=== PATIENT | female | born 1945 | race Caucasian/White ===

== ENCOUNTER 2019-10-24 09:55 | Outpatient (RCR) | payer MEDICARE, SELFPAY ==
--- NOTE | 2019-10-24 10:49 | PTOPEVAL ---
Thank you for referring this patient to [facility]. Please review, sign, date and return this plan of care JACKIE. I agree with and certify that the following plan of care is medically necessary. Referring Physician Date Admitting Provider: Attending Provider: Gorge Damon, Referring Provider: *PT Outpatient Evaluation Start: 10/24/19 10:17 Freq: Status: Active Protocol: Document 10/24/19 10:17 REJI (Rec: 10/24/19 10:49 REJI [id number]) Therapy Assessment Status Assessment Status Assessment Status Evaluation Evaluation Information Problem Diagnosis left shoulder pain Onset 04/11/19 Subjective Information Pt. recalls no particular Query Text:As Reported By Patient/ injury that increased her Family shoulder pain. She states that woke one day in the summer with shoulder pain. She reports that most pain in the shoulder is noted with reaching behind her back. She enjoys playing golf and pain has effected that. She reports most pain with doffing clothing or putting on her under garment. She reports that washing her back is difficult as well. Diagnostic Tests MRI For This Problem Yes: suprispinatus tear, bursitis Pain Assessment Timing of Pain Assessment Timing of Pain Assessment Pre-Treatment Pain Scale Pain Scale Used Numeric (1 - 10) Self Report Pain Assessment Left Shoulder(s) Reported Pain Level 2 Pain Description Sharp Current Pain Intensity 2 Lowest Pain Intensity 2 Greatest Pain Intensity 10 Pain Aggravating Factors Exercise/Activity Other Pain Aggravating Factors Pain is worst at night and wakes her from sleep Other Alleviating Interventions use of biofreeze helps to ease her pain Pain Score Pain Score 2: Self Report Upper Extremity Range of Motion Scapular/ Shoulder Range of Motion Right Shoulder Flexion - Active 158 Shoulder Medial Rotation - Active 80 Shoulder Lateral Rotation - Active 95 Left Shoulder Flexion - Active 148 Shoulder Medial Rotation - Active 60 Shoulder Medial Rotation - Active Pt. reaches the mid thoracic Query Text:Reach Behind the Back region with both the right and left. u.e with increased pain
--- NOTE | 2019-11-03 14:27 | PCPTNOTE ---
patient called and cancelled appt due to weather. BRITTANEY
== END 2019-12-07 08:26 | disposition home or self-care (01) ==
LOC: CHSPT 09:55
PROVIDERS: PCP Family Medicine; Visit Provider Family Medicine
DX: M25.512 Pain in left shoulder (principal)
CPT/HCPCS: 97014; 97110; 97161; G0283

== ENCOUNTER 2020-04-30 09:51 | Outpatient (CLI) | payer MEDICARE, SELFPAY ==
--- NOTE | ~2020-04-30 | MM_ITS ---
EXAMINATION: MM diagnostic lizabeth BI w yemi HISTORY: Recent benign right breast biopsy TECHNIQUE: Additional 3-D tomosynthesis images of the breasts were performed and synthetic 2-D images were generated. CAD analysis was submitted and interpreted. COMPARISON: Comparison to multiple prior studies sequentially, with oldest reviewed study dated 07/12. BREAST PARENCHYMAL COMPOSITION: BREAST PARENCHYMAL COMPOSITION: There are scattered areas of fibroglandular density. FINDINGS: There are benign breast calcifications. There are no suspicious masses, calcifications or a rchitectural distortion in either breast to suggest IMPRESSION: 1. No mammographic evidence for malignancy in either breast. 2. Routine yearly screening mammogram and regular clinical breast examination are recommended. BI-RADS Category 2: Benign finding(s). Reviewed, dictated and finalized at location A. IMPRESSION: 1. No mammographic evidence for malignancy in either breast. 2. Routine yearly screening mammogram and regular clinical breast examination a re recommended. BI-RADS Category 2: Benign finding(s).
== END 2020-04-30 09:52 | disposition home or self-care (01) ==
PROVIDERS: PCP Family Medicine; Visit Provider Family Medicine
DX: R92.8 Other abnormal and inconclusive findings on diagnostic imaging of breast (principal)
CPT/HCPCS: 77062; 77066; G0279

== ENCOUNTER 2021-06-11 14:13 | Outpatient (CLI) | payer MEDICARE, SELFPAY ==
--- NOTE | ~2021-06-11 | MM_ITS ---
EXAMINATION: MM screening lizabeth BI w yemi HISTORY: Screening TECHNIQUE: Craniocaudal and mediolateral oblique 3-D tomosynthesis images were obtained and synthetic 2-D images were generated. CAD analysis was submitted and interpreted. COMPARISON: No prior mammogram is available for comparison at this institution. BREAST PARENCHYMAL COMPOSITION: There are scattered areas of fibroglandular density. FINDINGS: No significant change to benign-appearing right breast calcifications. There is no evidence of suspicious mass, calcification, or architectural distortion to suggest malignancy in either breas t. There has been no suspicious interval change. IMPRESSION: 1. No mammographic evidence of malignancy. 2. Recommend routine screening mammography in one year. BI-RADS Category 2: Benign finding(s). Reviewed, dictated and finalized at location A.
== END 2021-06-11 14:14 | disposition home or self-care (01) ==
PROVIDERS: PCP Family Medicine; Visit Provider Family Medicine
DX: Z12.31 Encounter for screening mammogram for malignant neoplasm of breast (principal)
CPT/HCPCS: 77063; 77067

== ENCOUNTER 2021-08-05 08:07 | Outpatient (RCR) | payer MEDICARE, SELFPAY ==
--- NOTE | 2021-08-05 08:00 | PTOPEVAL ---
Thank you for referring Clarisa Tomas to [facility].? The patient is scheduled to be seen for therapy? ____x/week for ___ weeks. Please review, sign, date and return this plan of care JACKIE. I agree with and certify that the following plan of care is medically necessary. Referring Physician Date Admitting Provider: Attending Provider: Gorge Damon, MD Referring Provider: *PT Outpatient Evaluation Start: 08/05/21 07:02 Freq: Status: Active Protocol: Document 08/05/21 07:03 ACR (Rec: 08/05/21 08:00 ACR [id number]) Therapy Assessment Status Assessment Status Assessment Status Evaluation Evaluation Information Problem Diagnosis pain in R shoulder Onset 08/02/21 Subjective Information Patient states that her Query Text:As Reported By Patient/ shoulder has been bothering Family her quite a bit. She states that any overhead activities such as putting dishes away and cleaning windows. Patient states that sleeping is really bad. Patient states that she has pain all the time, but she is still able to perform her ADL's. She states she has tried all conservative pain remedies, but nothing is working. Patient reports when the pain gets bad it goes into her neck and down her arm but it is not numbness and tingling, it is a sharp pain. Patient states that her goal is to be able to sleep through the night and reach overhead without pain. Prior Level of Function Activity Level (Last 3 Months) Occupation retired Hand Dominance Right Activity of Daily Living Ability Independent Indoor/Home Mobility Independent Community Mobility Independent Stairs Ability Independent Functional Cognition (Planning, Shopping Independent , Taking Medications) Cooking Yes Cleaning Yes Laundry Yes Shopping Yes Driving Yes Pain Assessment Timing of Pain Assessment Timing of Pain Assessment Assessment Pain Scale Pain Scale Used Numeric (1 - 10) Self Report Pain Assessment Right Shoulder(s) Reported Pain Level 5 Pain Tesfaye
--- NOTE | 2021-08-26 12:36 | PTOPEVAL ---
Thank you for referring Clarisa Tomas to [facility].? The patient is scheduled to be seen for therapy? ____x/week for ___ weeks. Please review, sign, date and return this plan of care JACKIE. I agree with and certify that the following plan of care is medically necessary. Referring Physician Date Admitting Provider: Attending Provider: Gorge Damon, MD Referring Provider: *PT Outpatient Evaluation Start: 08/05/21 07:02 Freq: Status: Active Protocol: Document 08/23/21 06:58 ACR (Rec: 08/23/21 08:03 ACR [id number]) Therapy Assessment Status Assessment Status Assessment Status Progress Evaluation Information Problem Diagnosis pain in R shoulder Onset 08/02/21 Subjective Information Patient reports that since Query Text:As Reported By Patient/ beginning therapy she believes Family she shoulder is a little better, but she still has bad nights. She states that she played 9 holes of golf and had no difficulty, but as soon as she relaxes at night her shoulder really starts to bother her. She states that she wants to think about some pain medication at night to help her sleep. Pain Assessment Timing of Pain Assessment Timing of Pain Assessment Assessment Pain Scale Pain Scale Used Numeric (1 - 10) Self Report Pain Assessment Right Shoulder(s) Reported Pain Level 5 Greatest Pain Intensity 8 Pain Score Pain Score 5: Self Report Interventions Used Interventions Used By Clinicians Activity or ADL's,Electrical Stimulation,Exercise,Heat Upper Extremity Range of Motion Scapular/ Shoulder Range of Motion Right Shoulder Flexion - Active 173 Shoulder Abduction - Active 170 Shoulder Medial Rotation - Passive 81 Shoulder Medial Rotation - Active T7 Query Text:Reach Behind the Back Shoulder Lateral Rotation - Active 83 Shoulder Lateral Rotation - Active T3 Query Text:Reach Behind the Head Upper Extremity Muscle Strength Testing Scapular/Shoulder Right Shoulder Flexion Strength 4 Good Shoulder Abduction Strength 5 Normal Shoulder Medial Rotation Strength 5 Normal Shoulder Lateral Rotation Strength 4 Good General Exercise General Exercises Exercise Description - pulleys x 5 min Query Text:Record Sets, Reps, - PROM shoulder mobility x 10 Resistance, and Position min - B shoulder extension with scapular depression blue
--- NOTE | 2021-08-30 08:24 | PTOPEVAL ---
Thank you for referring Clarisa Tomas to [facility].? The patient is scheduled to be seen for therapy? ____x/week for ___ weeks. Please review, sign, date and return this plan of care JACKIE. I agree with and certify that the following plan of care is medically necessary. Referring Physician Date Admitting Provider: Attending Provider: Gorge Damon, Referring Provider: *PT Outpatient Evaluation Start: 08/05/21 07:02 Freq: Status: Active Protocol: Document 08/30/21 07:23 [facility] (Rec: 08/30/21 08:24 [facility] [email or web address]) Therapy Assessment Status Assessment Status Assessment Status Discharge Evaluation Information Problem Diagnosis pain in R shoulder Onset 08/02/21 Additional Evaluation Detail quick dash = 4.5% functionally declined Subjective Information patient reports she feels Query Text:As Reported By Patient/ Great this date. she reports Family this has been her best week yet since beginning therapy. she reports she is ready to DC therapy today. Pain Assessment Timing of Pain Assessment Timing of Pain Assessment Assessment Pain Scale Pain Scale Used Numeric (1 - 10) Self Report Pain Assessment Right Shoulder(s) Reported Pain Level 2 Greatest Pain Intensity 6 Pain Score Pain Score 2: Self Report Interventions Used Interventions Used By Clinicians Activity or ADL's,Electrical Stimulation,Exercise,Heat Upper Extremity Range of Motion Scapular/ Shoulder Range of Motion Right Shoulder Flexion - Active 170 Shoulder Medial Rotation - Passive 81 Shoulder Medial Rotation - Active mid thoracic spine Query Text:Reach Behind the Back Shoulder Lateral Rotation - Active 83 Shoulder Lateral Rotation - Active upper thoracic spine Query Text:Reach Behind the Head Upper Extremity Muscle Strength Testing Scapular/Shoulder Right Shoulder Flexion Strength 4+ Good + Shoulder Abduction Strength 5 Normal Shoulder Medial Rotation Strength 5 Normal Shoulder Lateral Rotation Strength 4+ Good + Elbow/Forearm Right Elbow Flexion Strength 5 Normal Elbow Extension Strength 5 Normal General Exercise General Exercises Exercise Description -PROM shoulder mobility x 8 Query Text:Record Sets, Reps, min Resistance, and Position -bilateral shoulder retraction light blue band x 30 reps -bilateral shoulder extension with scapular depression x 30 light blue -bilateral shoulder ER x30
== END 2021-08-30 09:07 | disposition home or self-care (01) ==
LOC: CHSPT 08:07
PROVIDERS: PCP Family Medicine; Visit Provider Family Medicine
DX: M75.41 Impingement syndrome of right shoulder (principal)
CPT/HCPCS: 97014; 97110; 97140; 97161; G0283

== ENCOUNTER 2022-06-17 07:17 | Outpatient (CLI) | payer MEDICARE, SELFPAY ==
--- NOTE | ~2022-06-17 | MM_ITS ---
EXAMINATION: MM screening lizabeth BI w yemi HISTORY: Screening mammogram TECHNIQUE: Craniocaudal and mediolateral oblique 3-D tomosynthesis images were obtained and synthetic 2-D images were generated. CAD analysis was submitted and interpreted. COMPARISON: Diagnostic bilateral mammogram 10/21/2019 bilateral diagnostic mammography 10/21/2019 limited right breast ultrasound 10/17/2019, 10/07/2017 bilateral screening mammogram examinations 06/11/2021 bilateral screening mammogr am 04/30/2020 BREAST PARENCHYMAL COMPOSITION: There are scattered areas of fibroglandular density. FINDINGS: There are 3 biopsy markers on the right; history of prior benign breast biopsies. Occasional bilateral benign solitary and grouped microcalcifications. There is no evidence of suspici ous mass, calcification, or architectural distortion to suggest malignancy in either breast. There whitehead s been no suspicious interval change. IMPRESSION: 1. No mammographic evidence of malignancy. 2. Recommend routine screening mammography in one year. BI-RADS Category 2: Benign finding(s). Reviewed, dictated and finalized at location A.
== END 2022-06-17 07:18 | disposition home or self-care (01) ==
LOC: CHSIMG 07:18
PROVIDERS: PCP Family Medicine; Visit Provider Family Medicine
DX: Z12.31 Encounter for screening mammogram for malignant neoplasm of breast (principal)
CPT/HCPCS: 77063; 77067

== ENCOUNTER 2023-02-11 07:49 | Outpatient (RCR) | payer MEDICARE, SELFPAY ==
--- NOTE | 2023-02-11 07:34 | PTOPEVAL1 ---
Assessment and note entered by Chetan Mejia Evaluation Information Assessment Status Evaluation Diagnosis right shoulder pain Onset 02/11/23 Subjective Information Pt. reports she has had on/off right shoulder pain for about 1 year. She reports she had therapy about 1 year ago and it helped to ease pain. She states that she had a recent injection which has helped to ease her pain. She describes pain in the area of the right lateral brachial region, but also states that she will get pain down the entire arm, with some noted heaviness and weakness . She reports that reaching overhead with the right arm and rolling onto the right side with sleep. She is able to complete all ADL's, just with pain and has to go more slowly. She reports that her goal is to decrease her right shoulder pain. Pt. reports she is right hand dominant. Reported Pain Level Pain Score 4: Self Report Assessment PT Clinical Summary Pt. is a 77 year old female who enters the clinic with right shoulder pain. She presents with indication of right shoulder rotator cuff syndrome , as well as cervical nerve root impingement. She currently presents with bilateral shoulder weakness, impaired c-spine and shoulder mobility, impaired postural awareness and pain. Continued skilled PT is indicated in order to improve these areas to allow the pt. to achieve her goal of decreased pain. Plan of Care Interventions Electrical Stimulation,Hot Pack/Cold Pack,Manual Therapy,Neuro Re-education,Therapeutic Activities, Therapeutic Exercise PT Services Indicated Yes Treatment Frequency and 2x/week x 10 visits Duration These treatments will address the objective and functional deficits as defined above. The patient will be advanced safely and appropriately in order for the patient to progress towards his/her prior level of function. Additional exercises will be introduced and as well as a comprehensive home exercise program upon discharge, if needed, ?to ensure carryover of functional gains achieved in the clinic. This treatment plan has been reviewed and agreement upon by the patient.
--- NOTE | 2023-03-16 07:43 | PTOPDC ---
Assessment and note entered by Talisha Harman DPT Evaluation Information Assessment Status Evaluation Diagnosis right shoulder pain Onset 02/11/23 Subjective Information Patient reports she has greatly improved since starting PT. She reports she has been able to return to sleeping on the R side with no increase in paini. She also reports she can reach overhead with minimal pain. She reports independence with HEP Reported Pain Level Pain Score 1: Self Report Assessment PT Clinical Summary Patient attended 10 visits of skilled PT with all goals met. She demonstrates improved R shoulder ROM and strength as well as decrease in pain with over head activities and sleeping. She is independent with HEP and appropriate for DC at this time. Plan of Care PT Services Indicated No
== END 2023-03-16 16:59 | disposition home or self-care (01) ==
LOC: CHSPT 07:49
PROVIDERS: Visit Provider Nurse Practitioner Family
DX: M25.511 Pain in right shoulder (principal)
CPT/HCPCS: 97014; 97110; 97112; 97161; G0283

== ENCOUNTER 2023-08-28 08:13 | Outpatient (CLI) | payer MEDICARE, OTHER, SELFPAY ==
--- NOTE | ~2023-08-28 | MM_ITS ---
EXAMINATION: MM screening lizabeth BI w yemi HISTORY: Screening mammogram TECHNIQUE: Craniocaudal and mediolateral oblique 3-D tomosynthesis images were obtained and synthetic 2-D images were generated. CAD analysis was submitted and interpreted. COMPARISON: 06/17/2022, 06/11/2021 bilateral screening mammogram examinations BREAST PARENCHYMAL COMPOSITION: There are scattered areas of fibroglandular density. FINDINGS: There are 3 biopsy markers on the right. History of prior benign right breast biopsies. There is a focal 5 mm asymmetric density in the posterior upper left breast on MLO view, possibly com posite shadowing of overlapping fibroglandular stroma, without apparent correlate on the CC projectio n. However, as a precaution, diagnostic left mammogram is recommended, with ultrasound if required Otherwise there is no evidence of suspicious mass, calcification, or architectural distortion to sugg est malignancy in either breast. There are occasional benign calcifications. IMPRESSION: 1. Focal asymmetry in posterior upper left breast on MLO view 2. Diagnostic left mammogram is recommended, with ultrasound if required BI-RADS Category 0: Incomplete: Needs additional imaging evaluation. Reviewed, dictated and finalized at location B. ON FANCIER
== END 2023-08-28 08:14 | disposition home or self-care (01) ==
PROVIDERS: PCP Family Medicine; Visit Provider Family Medicine
DX: Z12.31 Encounter for screening mammogram for malignant neoplasm of breast (principal); R92.8 Other abnormal and inconclusive findings on diagnostic imaging of breast
CPT/HCPCS: 77063; 77067

== ENCOUNTER 2023-09-21 08:42 | Outpatient (CLI) | payer MEDICARE, OTHER, SELFPAY ==
--- NOTE | ~2023-09-21 | MMUS_ITS ---
EXAMINATION: MM diagnostic lizabeth LT w yemi, US breast LT complete HISTORY: left breast asymmetries TECHNIQUE: Additional 3-D tomosynthesis images of the left breast were performed and synthetic 2-D im ages were generated. CAD analysis was submitted and interpreted. High resolution complete left breast ultrasound was performed. COMPARISON: Comparison to multiple prior studies sequentially, with oldest reviewed study dated 10/21. BREAST PARENCHYMAL COMPOSITION: BREAST PARENCHYMAL COMPOSITION: There are scattered areas of fibroglandular density. FINDINGS: MAMMOGRAPHIC FINDINGS: The areas of asymmetry are less apparent with spot compression and mediolateral views, likely superim posed fibroglandular tissue. There are no suspicious calcifications or architectural distortion. ULTRASOUND: Complete US of all 4 quadrants of the left breast and retroareolar region was reviewed. Normal hetero geneous echotexture without focal solid or cystic mass. IMPRESSION: 1. No evidence for malignancy in the left breast. 2. Routine yearly screening mammogram and regular clinical breast examination are recommended. BI-RADS Category 2: Benign finding(s). Reviewed, dictated and finalized at location A. 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 No evidence for malignancy in the left breast. 2. Routine yearly screening mammogram and regular clinical breast examination a re recommended. BI-RADS Category 2: Benign finding(s).
== END 2023-09-21 08:43 | disposition home or self-care (01) ==
LOC: CHSIMG 08:45
PROVIDERS: PCP Family Medicine; Visit Provider Family Medicine
DX: R92.8 Other abnormal and inconclusive findings on diagnostic imaging of breast (principal)
CPT/HCPCS: 76641; 77061; 77065; G0279

== ENCOUNTER 2024-10-24 14:41 | Outpatient (CLI) | payer MEDICARE, OTHER, SELFPAY ==
--- NOTE | ~2024-10-24 | MM_ITS ---
EXAMINATION: MM screening [facility] BI w yemi HISTORY: Screening mammogram TECHNIQUE: Craniocaudal and mediolateral oblique 3-D tomosynthesis images were obtained and synthetic 2-D images were generated. CAD analysis was submitted and interpreted. COMPARISON: 08/28/2023, 06/17/2022, 06/11/2021 BREAST PARENCHYMAL COMPOSITION:Not Dense. There are scattered areas of fibroglandular density. FINDINGS: No suspicious mass, calcification, or architectural distortion are identified in either juancarlos ast to suggest malignancy. There has been no suspicious interval change. IMPRESSION: No mammographic evidence of malignancy. Recommend routine screening mammography in one year. BI-RADS Category 1: Negative Reviewed, dictated and finalized at location . FLEX DEVELOPER
== END 2024-10-24 14:42 | disposition home or self-care (01) ==
LOC: CHSIMG 14:45
PROVIDERS: PCP Family Medicine; Visit Provider Registered Nurse
DX: Z12.31 Encounter for screening mammogram for malignant neoplasm of breast (principal)
CPT/HCPCS: 77063; 77067